=== PATIENT | female | born 1960 | race Asian ===

== ENCOUNTER 2017-10-09 05:13 | Outpatient (CLI) | END 2017-10-09 05:14 | disposition home or self-care (01) | LOC: AMBL 05:13 | PROVIDERS: ATTEND Family Medicine | DX: S01.111A Laceration without foreign body of right eyelid and periocular area, initial encounter (principal); W19.XXXA Unspecified fall, initial encounter; Y92.59 Other trade areas as the place of occurrence of the external cause ==